=== PATIENT | male | born 1970 | race Caucasian/White ===

== ENCOUNTER 2018-12-03 12:34 | Emergency (ER) | payer OTHER ==
[2018-12-03] MEDS ORDERED: ONDANSETRON HCL INJ/PF 4 MG/2 ML SDV IV ONE (12:59)
[2018-12-03] MEDS ORDERED: KETOROLAC TROMETHAMINE INJ/PF 30 MG/1 ML SDV IV ONE (12:59)
[2018-12-03] MEDS ORDERED: MORPHINE SULFATE 10 MG/ML INJ IV ONE (12:59)
--- NOTE | 2018-12-03 13:01 | ER Document Report ---
ED Medical Screen (RME) - General Chief Complaint: Possible Kidney Stone Stated Complaint: FLANK PAIN Time Seen by Provider: 12/03/18 12:58 Primary Care Provider: MATIAS ALLEN MD [Primary Care Provider] - Follow up as needed Mode of Arrival: Ambulatory Information source: Patient Notes: 48-year-old male presented to ED for right flank pain. He states he has had multiple kidney stones in the past and he is having severe pain and nausea and vomiting from this pain. He is alert oriented respirations regular and unlabored. He states he does not see any blood in his urine. Patient states he had skin cancers removed and back surgery and never had this much pain. I have greeted and performed a rapid initial assessment of this patient. A comprehensive ED assessment and evaluation of the patient, analysis of test results and completion of medical decision making process will be conducted by an additional ED providers. TRAVEL OUTSIDE OF THE [place] IN LAST 30 DAYS: No - Related Data Allergies/Adverse Reactions: No Known Drug Allergies Allergy (Verified 12/03/18 12:40) Past Medical History - Social History Frequency of alcohol use: None Drug Abuse: None Physical Exam - Vital signs Vitals: Temp Pulse Resp BP Pulse Ox 97.7 F 73 20 161/100 H 96 12/03/18 12:44 12/03/18 12:44 12/03/18 12:44 12/03/18 12:44 12/03/18 12:44 Course - Vital Signs Vital signs: Temp Pulse Resp BP Pulse Ox 97.7 F 73 20 161/100 H 96 12/03/18 12:44 12/03/18 12:44 12/03/18 12:44 12/03/18 12:44 12/03/18 12:44 Doctor's Discharge - Discharge Referrals: MATIAS ALLEN MD [Primary Care Provider] - Follow up as needed
[2018-12-03 13:27] LABS: ABSOLUTE BASOPHILS # (AUTO) 0.1 10^3/uL (0.0-0.2); ABSOLUTE EOSINOPHILS # (AUTO) 0.3 10^3/uL (0.0-0.6); ABSOLUTE LYMPHOCYTES (AUTO) 2.2 10^3/uL (0.5-4.7); ABSOLUTE MONOCYTES (AUTO) 0.5 10^3/uL (0.1-1.4); ABSOLUTE NEUT (AUTO) 6.3 10^3/uL (1.7-8.2); HEMATOCRIT 43.5 % (37.9-51.0); MEAN CORPUSCULAR HEMOGLOBIN 28.1 pg (27.0-33.4); MEAN CORPUSCULAR HGB CONC 34.4 g/dL (32.0-36.0); MEAN CORPUSCULAR VOLUME 82 fl (80-97); MONOCYTES % (AUTO) 5.8 % (3-13); PLATELET COUNT 276 10^3/uL (150-450); RED BLOOD COUNT 5.34 10^6/uL (4.35-5.55); RED CELL DISTRIBUTION WIDTH 13.5 % (11.5-14.0); SEGMENTED NEUTROPHILS % (AUTO) 67.2 % (42-78); TOTAL CELLS COUNTED % (AUTO) 100 %; WHITE BLOOD COUNT 9.4 10^3/uL (4.0-10.5)
[2018-12-03 13:42] LABS: ALBUMIN 4.8 g/dL (3.5-5.0); ALKALINE PHOSPHATASE 129 U/L (38-126); ANION GAP 13 (5-19); ASPARTATE AMINO TRANSFERASE 29 U/L (17-59); BILIRUBIN,DIRECT 0.1 mg/dL (0.0-0.4); BILIRUBIN,TOTAL 0.7 mg/dL (0.2-1.3); BLOOD UREA NITROGEN 17 mg/dL (7-20); CALCIUM 10.1 mg/dL (8.4-10.2); CARBON DIOXIDE 23 mmol/L (22-30); CHLORIDE 104 mmol/L (98-107); GLUCOSE 103 mg/dL (75-110); POTASSIUM 3.9 mmol/L (3.6-5.0); TOTAL PROTEIN 7.8 g/dL (6.3-8.2)
--- NOTE | 2018-12-03 13:45 | RADIOLOGY REPORT (SQ) ---
EXAM DESCRIPTION: CT ABD/PELVIS NO ORAL OR IV COMPLETED DATE/TIME: 12/03/2018 1:28 pm REASON FOR STUDY: right flank pain COMPARISON: None. TECHNIQUE: CT scan of the abdomen and pelvis performed without intravenous or oral contrast. Images reviewed with lung, soft tissue, and bone windows. Reconstructed coronal and sagittal MPR images revi ewed. All images stored on PACS. All CT scanners at this facility use dose modulation, iterative reconstruction, and/or weight based d osing when appropriate to reduce radiation dose to as low as reasonably achievable (ALARA). [facility]: Dose Right [facility]: CareDose [facility]: Dose Right [facility]: Teradose 4D [facility]: [employer] RADIATION DOSE: CT Rad equipment meets quality standard of care and radiation dose reduction techniq ues were employed. CTDIvol: 18.2 mGy. DLP: 1106 mGy-cm.mGy. LIMITATIONS: None. FINDINGS: LOWER CHEST: No consolidation or pleural effusion. NON-CONTRASTED LIVER, SPLEEN, ADRENALS: Evaluation limited by lack of IV contrast. No identified sign ificant masses. There is diffuse decreased attenuation of the liver suggestive of fatty infiltration PANCREAS: No peripancreatic inflammatory changes. GALLBLADDER: Present. RIGHT KIDNEY AND URETER: Assessment for masses limited by lack of IV contrast. There is mild hydron ephrosis. A 4 mm calculus is noted at the distal right ureter in the pelvis. LEFT KIDNEY AND URETER: Assessment for masses limited by lack of IV contrast. No significant calcif ications. No hydronephrosis or hydroureter. AORTA AND RETROPERITONEUM: No abdominal aortic aneurysm. No retroperitoneal masses or hemorrhage. BOWEL AND PERITONEAL CAVITY: No dilated bowel loops or inflammatory changes. No free fluid. APPENDIX: Normal. PELVIS, BLADDER, AND ABDOMINAL WALL:No pelvic mass. No free fluid. Bladder partially distended. Ther e is a small fat containing umbilical hernia. BONES: Multilevel degenerative changes at the spine. Orthopedic hardware at the L4-L5. Sclerotic ap pearance of L1 vertebra with coarse trabeculations. Mild degenerative changes at the bilateral hips. IMPRESSION: 1. 4 mm calculus at the distal right ureter with mild right hydronephrosis. 2. Fatty infiltration of the liver. 3. Sclerotic appearance of L1 with coarse trabeculations, suggestive of Paget's disease. COMMENT: Quality ID # [id number]: Final reports with documentation of one or more dose reduction techniques (e.g., Automated exposure control, adjustment of the mA and/or kV according to patient size, use of iterative reconstruction technique) TECHNICAL DOCUMENTATION: JOB ID: [id number] All Rights Reserved Reading location - IP/workstation name: [email or web address]
--- NOTE | 2018-12-03 14:05 | ER Document Report ---
ED General - General Chief Complaint: Possible Kidney Stone Stated Complaint: FLANK PAIN Time Seen by Provider: 12/03/18 12:58 Primary Care Provider: MATIAS ALLEN MD [Primary Care Provider] - Follow up as needed JOSH WERNER MD [NO LOCAL MD] - Follow up in 1 week Mode of Arrival: Ambulatory TRAVEL OUTSIDE OF THE [place] IN LAST 30 DAYS: No - HPI Notes: Patient is a 48-year-old male that presents to the emergency department for chief complaint of right-sided flank pain. She had acute onset of pain in his right flank that radiates down into his right groin at 10 AM this morning. The pain has been constant since onset but is improved with medicines given in triage. He denied any associated nausea, vomiting fevers or chills. Patient denies recent urinary tract infection or dysuria. He states he has had a kidney stone many years ago and this does feel similar. He denies any injury to his flank. The pain has no exacerbating or relieving factors. Past Medical History: History of kidney stones Past Surgical History: Reviewed in chart Social History: Reviewed in chart Family History: Reviewed and noncontributory for presenting illness Allergies: Reviewed, see documented allergy list. REVIEW OF SYSTEMS: CONSTITUTIONAL : No fever No chills No diaphoresis No recent illness EENT: No vision changes No congestion No sore throat CARDIOVASCULAR: No chest pain No palpitations RESPIRATORY: No shortness of breath No cough No difficulty breathing GASTROINTESTINAL: Right flank pain No abdominal pain No nausea No vomiting No diarrhea GENITOURINARY: No dysuria No hematuria No difficulty urinating MUSCULOSKELETAL: No back pain No leg pain No arm pain SKIN: No rashes No lesions LYMPHATIC: No swollen, enlarged glands. NEUROLOGICAL: No lightheadedness No headache No weakness No paresthesias PSYCHIATRIC: No anxiety No depression PHYSICAL EXAMINATION: Vital signs reviewed, nursing noted reviewed. GENERAL: Well-appearing, well-nourished and in no acute distress. HEAD: Atraumatic, normocephalic. EYES: Eyes appear normal, extraocular movements intact, sclera anicteric, conjunctiva are normal. ENT: nares patent, oropharynx clear without exudates. Moist mucous membranes. NECK: Normal range of motion, supple without lymphadenopathy LUNGS: Breath sounds clear to auscultation bilaterally and equal. No wheezes rales or rhonchi. HEART: Regular rate and rhythm without murmurs ABDOMEN: Soft,Mild right CVA tenderness, abdomen nontender, normoactive bowel sounds. No rebound, guarding, or rigidity. No masses appreciated. EXTREMITIES: Nontender, good range of motion, no pitting or edema. NEUROLOGICAL: No focal neurological deficits. Moves all extremities spontaneously Motor and sensory grossly intact on exam. PSYCH: Normal mood, normal affect. SKIN: Warm, Dry, normal turgor, no rashes or lesions noted on exposed skin - Related Data Allergies/Adverse Reactions: No Known Drug Allergies Allergy (Verified 12/03/18 12:40) Past Medical History - General Information source: Patient - Social History Smoking Status: Never Smoker Frequency of alcohol use: None Drug Abuse: None Family History: Reviewed & Not Pertinent Patient has suicidal ideation: No Patient has homicidal ideation: No Physical Exam - Vital signs Vitals: Temp Pulse Resp BP Pulse Ox 97.7 F 73 20 161/100 H 96 12/03/18 12:44 12/03/18 12:44 12/03/18 12:44 12/03/18 12:44 12/03/18 12:44 Course - Re-evaluation Re-evalutation: 12/03/18 14:01 Vitals reviewed. Nursing notes reviewed. Patient feels improved after receiving fluids, Toradol and morphine in triage. He is currently resting comfortably. Lab work shows no renal insufficiency. Patient does have a 4 mm ureterolithiasis on the right with associated mild hydronephrosis. Urinalysis has been ordered but yet to be obtained. Patient will be started on Flomax, naproxen and [place]. If UTI present antibiotics will also be started. patient will be referred to urology for follow-up. He was counseled on return precautions. He is stable for discharge. Laboratory 12/03/18 12/03/18 13:00 13:00 WBC 9.4 RBC 5.34 Hgb 15.0 Hct 43.5 MCV 82 MCH 28.1 MCHC 34.4 RDW 13.5 Plt Count 276 Lymph % (Auto) 23.0 [place] % (Auto) 5.8 Eos % (Auto) 3.0 Baso % (Auto) 1.0 Absolute Neuts (auto) 6.3 Absolute Lymphs (auto) 2.2 Absolute Monos (auto) 0.5 Absolute Eos (auto) 0.3 Absolute Basos (auto) 0.1 Seg Neutrophils % 67.2 Sodium 140.2 Potassium 3.9 Chloride 104 Carbon Dioxide 23 Anion Gap 13 BUN 17 Creatinine 1.09 Est GFR ( Amer) > 60 Est GFR (MDRD) Non-Af > 60 Glucose 103 Calcium 10.1 Total Bilirubin 0.7 Direct Bilirubin 0.1 Neonat Total Bilirubin Not Reportable Neonat Direct Bilirubin Not Reportable Neonat Indirect Bili Not Reportable AST 29 ALT 52 Alkaline Phosphatase 129 H Total Protein 7.8 Albumin 4.8 Lipase 58.6 Abdomen/Pelvis CT 12/03/18 13:02 IMPRESSION: 1. 4 mm calculus at the distal right ureter with mild right hydronephrosis. 2. Fatty infiltration of the liver. 3. Sclerotic appearance of L1 with coarse trabeculations, suggestive of Paget's disease. 12/03/18 15:17 Patient's urinalysis is negative for infection. There is blood consistent with his ureterolithiasis. Patient is remained comfortable while in the emergency room. He did have an incidental finding of some changes of L1 concerning for Paget's disease. Patient does have a history of chronic low back issues and has had L3-L4 fusion. He states that he is never been told he had Paget's disease. I encouraged him to follow with his primary care doctor for further diagnosis and management. He was provided a copy of his CT results today to take to his primary care doctor as well. - Vital Signs Vital signs: Temp Pulse Resp BP Pulse Ox 97.7 F 73 20 161/100 H 96 12/03/18 12:44 12/03/18 12:44 12/03/18 12:44 12/03/18 12:44 12/03/18 12:44 - Laboratory Result Diagrams: 12/03/18 13:00 12/03/18 13:00 Laboratory results interpreted by me: 12/03/18 12/03/18 13:00 14:17 Alkaline Phosphatase 129 H Urine Blood LARGE H Discharge - Discharge Clinical Impression: Ureterolithiasis Condition: Stable Disposition: HOME, SELF-CARE Instructions: Kidney Stone ([facility]) Additional Instructions: Please return to the emergency department if you have any worsening, or concern of your symptoms. Please return to the emergency department if you develop chest pain, difficulty breathing, severe abdominal pain, or ongoing vomiting. Please follow-up with your primary care physician in 2-3 days and any other recommended physicians. If prescribed, take all medications as directed. If you have any questions or concerns do not hesitate to return the emergency department for evaluation. On your L1 vertebrae there was an incidental finding of some bony changes that the radiologist felt could be possible Paget's disease. This is something that would need to be further investigated by a primary care doctor to confirm any diagnosis. Please contact your primary care doctor to discuss these findings in the next step. Prescriptions: Tamsulosin HCl [Flomax 0.4 mg Cap.sr] 0.4 mg PO DAILY #7 cap.sr.24h Naproxen 500 mg PO BID PRN #30 tablet PRN Reason: Pain Scale Of 1 Hydrocodone/Acetaminophen [[place] 5-325 Tablet] 1 each PO Q6 #12 tablet Forms: Elevated Blood Pressure Referrals: MATIAS ALLEN MD [Primary Care Provider] - Follow up as needed JOSH WERNER MD [NO LOCAL MD] - Follow up in 1 week
[2018-12-03 15:11] LABS: APPEARANCE,URINE SLIGHTLY-CLOUDY; BILIRUBIN,URINE NEGATIVE (NEGATIVE); COLOR,URINE YELLOW; GLUCOSE, URINE NEGATIVE (NEGATIVE); KETONES,URINE NEGATIVE (NEGATIVE); LEUKOCYTE ESTERASE,URINE NEGATIVE (NEGATIVE); NITRITE,URINE NEGATIVE (NEGATIVE); PROTEIN,URINE NEGATIVE (NEGATIVE); URINE SPECIFIC GRAVITY 1.015; UROBILINOGEN,URINE NEGATIVE mg/dL (<2.0)
[2018-12-03 15:53] VITALS: BP 129/78
== END 2018-12-03 15:53 | disposition home or self-care (01) ==
LOC: ER 12:34
DX: N20.1 Calculus of ureter (principal); R10.31 Right lower quadrant pain
CPT/HCPCS: 99284; 96374; 96375; 36415; 83690; 85025; 80053; 81001; 74176; J1885; J2270; J2405